=== PATIENT | male | born 1975 | race Caucasian/White ===

== ENCOUNTER 2019-03-09 09:34 | Emergency (ER) | payer MEDICAID ==
[~2019-03-09] VITALS: Ht 162.6 cm; Wt 78.9 kg
[2019-03-09 09:42] VITALS: BP 122/89
--- NOTE | 2019-03-09 09:48 | NUR ---
pt ambulated to er bed 05
--- NOTE | 2019-03-09 10:05 | NUR ---
ERMD AT BEDSIDE
--- NOTE | 2019-03-09 10:08 | NUR ---
C/O LOWER BACK PAIN X3 DAYS. PT STATES HE HAD "BACK SURGERY OCT 2018, AND HAS BEEN IN PAIN SINCE THEN". DENIED N/V/D/FEVER.SKIN IS PINK/WARM/DRY; AAOX4 WITH EVEN AND STEADY GAIT; LUNGS CLEAR BL; HR EVEN AND REGULAR; VSS; PATIENT POSITIONED FOR COMFORT; HOB ELEVATED; BEDRAILS UP X1; BED DOWN. ER MD MADE AWARE OF PT STATUS.
[2019-03-09] MEDS ORDERED: KETOROLAC 30 MG/ML VIAL IM ONE (10:20)
[2019-03-09 10:52] VITALS: BP 130/90
== END 2019-03-09 10:52 | disposition home or self-care (01) ==
LOC: MED 09:34
DX: G89.29 Other chronic pain (principal); M54.5 Low back pain
CPT/HCPCS: 96372; 99283; J1885

== ENCOUNTER 2019-03-18 21:05 | Emergency (ER) | payer MEDICAID ==
[~2019-03-18] VITALS: Ht 167.6 cm; Wt 72.6 kg
[2019-03-18 21:18] VITALS: BP 137/90
--- NOTE | 2019-03-18 21:21 | NUR ---
TO LOBBY A/W BED, AMBULATORY ,VSS.
--- NOTE | 2019-03-18 21:58 | NUR ---
PT AMBULATED TO BED 07.
--- NOTE | 2019-03-18 22:10 | NUR ---
43/M PRESENTS SELF TO ED, C/O 08/27 MIDBACK PAIN, X2 DAYS, WORSENING X1 DAY. PT WITH A BRACE AROUND TRUNK. OLD SURGICAL SCARS NOTED ON BACK WITH PLATES, TENDER TO TOUCH, NO REDNESS OR ABNORMALITY NOTED. PT DENIES FEVER, CP, SOB, N/V, DYSURIA. AOX4, GCS 15, RR EVEN AND UNLABORED. HX BACK SURGERY (10/2018 S/P FALL FROM ROOF), INGUINAL HERNIA SURGERY RX BEECH BOTTOM
[2019-03-18] MEDS ORDERED: HYDROcodone/APAP 5/325 MG 1 TAB TAB PO ONE (23:40)
[2019-03-18 23:57] VITALS: BP 143/82
--- NOTE | 2019-03-18 23:58 | NUR ---
Patient discharged with v/s stable. Written and verbal after care instructions given and explained. Patient alert, oriented and verbalized understanding of instructions. Ambulatory with steady gait. All questions addressed prior to discharge. ID band removed. Patient advised to follow up with PMD. Rx of FLEXERIL, NORCO, NAPROXEN given. Patient educated on indication of medication including possible reaction and side effects. Opportunity to ask questions provided and answered.
== END 2019-03-18 23:57 | disposition home or self-care (01) ==
LOC: MED 21:05
DX: G89.29 Other chronic pain (principal); M54.9 Dorsalgia, unspecified
CPT/HCPCS: 99282

== ENCOUNTER 2019-06-23 18:54 | Emergency (ER) | payer MEDICAID ==
[~2019-06-23] VITALS: Ht 152.4 cm; Wt 81.6 kg
[2019-06-23 18:55] VITALS: BP 139/82
--- NOTE | 2019-06-23 19:13 | NUR ---
PT MEENU FOUND ON THE GROUND, PT INITIALLY DID NOT WANT TREATMENT THEN C/O UPPER BACK PAIN WHICH IS CHRONIC FROM A SURGERY IN OCTOBER. PT ADMITS TO HAVING 5 BEERS TODAY, DENIES INJURY OR FALL HX ETOH
--- NOTE | 2019-06-23 19:19 | NUR ---
REPORT GIVEN TO SCOTT LAU; TRANSFER OF CARE AT THIS TIME.
[2019-06-23] MEDS ORDERED: KETOROLAC 30 MG/ML VIAL IM ONE (19:25)
--- NOTE | 2019-06-23 19:25 | NUR ---
RECEIVED REPORT FROM SCOTT ANTHONY. PT IN BED, ROSALINDA RIOS AT BEDSIDE ASSESSING PT WITH TIGRE AMBROSIO ASSISTING WITH TRANSLATION. WILL CONTINUE CARE ORDERED. PT IN STABLE CONDITION AT THIS TIME.
[2019-06-23 19:53] VITALS: BP 125/76
--- NOTE | 2019-06-23 19:53 | NUR ---
Patient discharged with v/s stable. Written and verbal after care instructions given and explained. Patient alert, oriented and verbalized understanding of instructions. Ambulatory with steady gait. All questions addressed prior to discharge. ID band removed. Patient advised to follow up with PMD. Rx of NAPROXEN 375MG given. Patient educated on indication of medication including possible reaction and side effects. Opportunity to ask questions provided and answered. BUS PASS PROVIDED FOR THE PATIENT.
== END 2019-06-23 19:53 | disposition home or self-care (01) ==
LOC: MED 18:54
DX: M54.6 Pain in thoracic spine (principal); F10.10 Alcohol abuse, uncomplicated; Z98.890 Other specified postprocedural states
CPT/HCPCS: 96372; 99283; J1885